=== PATIENT | male | born 1985 | race Caucasian/White ===

== ENCOUNTER 2020-10-26 23:18 | Emergency (ER) | payer OTHER ==
[~2020-10-26] VITALS: Ht 188 cm; Wt 97.1 kg
[~2020-10-26 23:18] MED LIST: NOHOMEMEDICATIONS
[2020-10-26 23:59] LABS: HEMATOCRIT 45.7 % (42.0-52.0); HEMOGLOBIN 15.4 gm/dL (14.0-18.0); MCH 30.9 pg (26.0-34.0); MCHC 33.6 g/dL (28.0-37.0); MPV 6.6 fl. (7.2-11.1); RBC 4.96 mil/uL (4.50-6.00); RDW-CV 14.2 % (10.5-14.5); WBC 5.5 thou/uL (4.0-11.0)
[2020-10-27 00:13] LABS: SALICYLATE < 2.8 mg/dL (2.8-20.0)
[2020-10-27 00:14] LABS: ACETAMINOPHEN < 2 ug/mL (10-30); ALCOHOL 594 mg/dL (<10)
[2020-10-27 00:52] LABS: CALCIUM 8.5 mg/dL (8.5-10.1); POTASSIUM 3.5 mmol/L (3.5-5.1)
[2020-10-27 00:57] LABS: ALBUMIN 3.8 g/dL (3.4-5.0); TOTAL BILIRUBIN 0.4 mg/dL (<0.1-1.0); TOTAL PROTEIN 7.5 g/dL (6.4-8.2)
[2020-10-27 02:51] VITALS: BP 111/63
--- NOTE | 2020-10-27 11:46 | EKG ---
[place] [address] ELECTROCARDIOGRAM REPORT Name: JAY RICHARDSON Room: [facility]#: [id number] Admission: 10/26/20 Attend Phys: Discharge: 10/27/20 Date of : 87 Date of Service: 10/26/20 2327 Report #: [id number] THIS REPORT FOR: //name// [facility] ED Test Date: 2020-10-26 Test Time: 23:27:56 Pat Name: JAY RICHARDSON Department: Room: Gender: Pipefitter: JGUEST : 1985 Requested By: Kylah Mendiola Order Number: [id number] MD: Sonido Richards Measurements Intervals [place] Rate: 78 P: 54 AR: 128 QRS: 31 QRSD: 123 T: 63 QT: 407 QTc: 464 Interpretive Statements Sinus rhythm Early transition Borderline intraventricular conduction delay No previous ECG available for comparison Electronically Signed On 10-27-2020 11:46:18 CDT by Sonido Richards [email or web address] <ELECTRONICALLY SIGNED> By: Sonido Richards MD, [facility] 10/27/20 1146 26 26 Sonido Richards MD, [facility] /EPI
[2020-10-27] MEDS ORDERED: ZOFRAN ODT4 MG PO (17:14)
== END 2020-10-27 02:21 | disposition home or self-care (01) ==
LOC: M.ERS 23:18
PROVIDERS: Personal Emergency Response Attendant
DX: F10.229 Alcohol dependence with intoxication, unspecified (principal); Y90.8 Blood alcohol level of 240 mg/100 ml or more

== ENCOUNTER 2020-10-27 10:19 | Emergency (ER) | payer OTHER ==
[~2020-10-27] VITALS: Ht 188 cm; Wt 97.1 kg
[2020-10-27] MEDS ORDERED: ZOFRAN ODT4 MG PO (17:14)
[2020-10-27 17:23] VITALS: BP 109/64
== END 2020-10-27 17:24 | disposition home or self-care (01) ==
LOC: M.ERS 10:19
DX: F10.220 Alcohol dependence with intoxication, uncomplicated (principal)

== ENCOUNTER 2020-10-27 17:32 | Emergency (ER) | payer OTHER ==
[~2020-10-27 17:32] MED LIST changes: +ZOFRAN ODT4 MG PO
== END 2020-10-27 17:47 | disposition left against medical advice (07) ==
LOC: M.ERS 17:32
DX: F10.20 Alcohol dependence, uncomplicated (principal); Z76.5 Malingerer [conscious simulation]; Z79.899 Other long term (current) drug therapy